=== PATIENT | male | born 1970 | race Caucasian/White ===

== ENCOUNTER 2019-06-15 14:45 | Inpatient (IN) ==
[2019-06-15] MEDS ORDERED: ONDANSETRON INJ 2 MG/ML 2 ML VIAL IV STA (15:01)
[2019-06-15] MEDS ORDERED: KETOROLAC TROMETHAMINE 15 MG/ML VIAL IV STA (15:01)
[2019-06-15] MEDS ORDERED: SODIUM CHLORIDE 0.9% 1000ML 1,000 ML IV ONE (15:01)
[2019-06-15] MEDS: MoRPHine SULFATE 10 MG/ML CARP/VIAL IV PRN ×2 (15:16→15:33)
[2019-06-15 15:35] LABS: Hematocrit (blood only) 45.3 % (42-52); Mean Corpuscular Hemoglobin 31.6 pg (25-34); Mean Corpuscular Hgb Conc 35.3 g/dL (32-36); Mean Corpuscular Volume 89.3 fL (80-100); Mean Platelet Volume 9.8 fL (7.4-10.4); Platelet Count 200 K/uL (130-400); RDW Coefficient of Variation 13.5 % (11.5-14.5); RDW Standard Deviation 43.7 fL (36.4-46.3); Red Blood Count 5.07 M/uL (4.7-6.1); White Blood Count 18.62 K/uL (4.8-10.8)
--- NOTE | 2019-06-15 15:51 | XRay Report ---
XR KUB/Abdomen 1 view CLINICAL HISTORY: STONE, PAIN COMPARISON STUDY: Noncontrast CT scan dated 06/14/2019 FINDINGS: There is scattered stool within the colon. The renal shadows are largely obscured. No defin ite renal calculi are visualized. There are 2 pelvic basin calcifications. The superior calcification is somewhat irregular. This measures 3 mm and may correspond to the recently described distal right ureteral calculus. IMPRESSION: 1. No evidence of pathologic bowel dilatation 2. 3 mm right pelvic basin calcification, possibly corresponding to the recently described distal rig ht ureteral calculus Electronically signed by: Jovan Hameed M.D. 06/15/2019 3:49 PM
[2019-06-15 15:52] LABS: BUN Creatinine Ratio 12.7 (10-20); Calcium 8.9 mg/dl (8.5-10.1); Creatinine Clr Calc Pharmacy 62.4 ml/min; Est GFR (African American) 76.6; Est GFR (Non-African American) 66.1
[2019-06-15] MEDS ORDERED: TAMSULOSIN HCL 0.4 MG CAP PO ONE (16:00)
[2019-06-15] MEDS ORDERED: MoRPHine SULFATE 4 MG/ML 1 ML CARP\\VIAL IV STA (16:25)
[2019-06-15] MEDS ORDERED: cefTRIAXone SODIUM 1,000 MG in DEXTROSE 5% 50 ML IV SCH ×2 (16:40→17:30)
--- NOTE | 2019-06-15 16:40 | Emergency Department Note ---
Entered by Fannie Chung acting as a scribe for History of Present Illness General Chief complaint: Kidney Stone Stated complaint: KIDNEY STONE Time Seen by Provider: 06/15/19 14:57 Source: patient Mode of arrival: ambulatory Limitations: no limitations History of Present Illness Provider complaint: Kidney stone Onset (ago): hour(s) (this morning) Location: abdomen (flank) and right Severity: similar to prior episodes Pain Consistency: + other (worsening) Maximum Pain Intensity: 10 Current Pain Intensity: 10 Quality: + other (kidney stone) Relieved By: + none Associated symptoms: + diaphoresis, + nausea/vomiting and + other (Denies: hematuria) The patient is a 49 year old male with a history of a kidney stone, temporomandibular joint disorder, and a herniorrhaphy who presents to the Emergency Room with complaints of a worsening kidney stone starting this morning around 1000. The patient reports he began experiencing right flank pain yesterday and subsequently came to the ED. He states that he was diagnosed with a 5 mm right-sided kidney stone and discharged on hydrocodone. He notes that his pain worsened today and that it has been accompanied by vomiting and diaphoresis. He currently rates his pain a 10/10. He denies any hematuria. The patient recalls that he had a kidney stone 20 years ago that passed naturally b ut may have required lithotripsy. He states that his PCP is Dr. Dawson at [facility] in [place]. Home Medications Home Medications Medication Instructions Recorded Confirmed Type hydrocodone-acetaminophen [[place]] 1 tab PO Q6H PRN #10 tab 06/14/19 06/15/19 Rx Allergies Allergy/AdvReac Type Severity Reaction Status Date / Time latex Allergy Redness of Verified 06/15/19 16:30 Skin Past Med/Surg History Medical History Kidney stone (Acute) 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 Surgical History History of herniorrhaphy X 4; ABDOMINAL Family History Mother Family history of diabetes mellitus Cancer BREAST Myocardial infarction Stroke Father Family history of diabetes mellitus Uncle Cancer Brother Cancer Social History Preferred Language: Romanian Communication Ability: Effective Auto Repair Technician Required: No Beliefs That Will Affect Care: None Current Living Situation: Family Other Information That Helps Us Care for You: No Feels Safe at Home: Yes Safety Concerns: Feels Safe At This Time Smoking Status: Never smoker Second Hand Exposure: No ; Hx Alcohol Use: No Hx Substance Use: No Review of Systems See HPI for pertinent positives & negatives. and A total of 10 systems reviewed and were otherwise negative Physical Exam Vital Signs Vital Signs - 24 hr 06/15/19 14:52 06/15/19 15:57 Temperature 36.4 C L Temperature Source Oral Sepsis Recent Fever Within 48 Hours No Sepsis New/Unexplained Change in Mental Status No Sepsis Action Taken by Nursing No Action Required Pulse Rate 53 L Pulse Rate [Finger] 68 Respiratory Rate 20 20 Blood Pressure 191/90 H Blood Pressure [Right Arm] 135/89 Blood Pressure Mean 123 Blood Pressure Mean [Right Arm] 104 Pulse Oximetry 100 98 Oxygen Delivery Method Room Air Room Air GENERAL: Patient is in moderate distress from pain. HEENT: No acute trauma, normocephalic atraumatic, mucous membranes moist, no nasal congestion, no scleral icterus. NECK: No stridor, no adenopathy, no meningismus, trachea is midline. LUNGS: Clear to auscultation bilaterally, no wheeze, no rhonchi, breath sounds equal. HEART: Without murmurs gallops or rubs, regular rate and rhythm. ABDOMEN: Soft, nontender, bowel sounds positive, no hernias, no peritonitis. BACK: Right flank discomfort with percussion. EXTREMITIES: No cyanosis or edema, full range of motion of all the joints without pain or difficulty, no signs for acute trauma. NEUROLOGIC: Oriented x 3, no acute motor or sensory deficits, no focal weakness. SKIN: No rash, no jaundice, no diaphoresis. Course 1500: The patient was evaluated in room B11A, and a complete history and physical examination were performed. 1556: I checked on the patient and updated him on his results. He is agreeable to the treatment plan. 1610: I reviewed the patient's case with Nicole Colindres PA-C. She will come to see the patient and Dr. Worley - Hospitalist will evaluate the patient for further management. Consultations Consultation #1: I reviewed the patient's case with Daljit Colindres PA-[facility]. She will come to see the patient and Dr. Worley - Hospitalist will evaluate the patient for further management. Time: 16:10 Administered Medications Acetaminophen (Tylenol) 1,000 mg PO Q8 PARMINDER Stop: 07/15/19 18:29 Last Admin: 06/15/19 18:43 Dose: 1,000 mg Documented by: [id number] Hydralazine HCl (Hydralazine Hcl) 10 mg IV Q6H PRN PRN Reason: Hypertension Stop: 07/15/19 19:29 Last Admin: 06/15/19 19:26 Dose: 10 mg Documented by: [id number] Sodium Chloride (Nss 1000ml) 1,000 mls @ 150 mls/hr IV .Q6H40M PARMINDER Stop: 07/15/19 16:44 Last Infusion: 06/15/19 22:00 Dose: 150 mls/hr Documented by: [id number] Infusion: 06/15/19 19:19 Dose: 150 mls/hr Documented by: [id number] Infusion: 06/15/19 18:42 Dose: 0 mls/hr Documented by: [id number] Admin: 06/15/19 18:10 Dose: 150 mls/hr Documented by: [id number] Infusion: 06/15/19 18:10 Dose: 150 mls/hr Documented by: [id number] Admin: 06/15/19 17:34 Dose: 150 mls/hr Documented by: [id number] Ceftriaxone Sodium 1,000 mg/ (Dextrose) 60 mls @ 100 mls/hr IV DAILY@1700 PARMINDER; Protocol Stop: 06/20/19 17:29 Last Infusion: 06/15/19 19:19 Dose: 0 mls/hr Documented by: [id number] Admin: 06/15/19 18:42 Dose: 100 mls/hr Documented by: [id number] Ketorolac Tromethamine (Toradol) 30 mg IV Q6H PRN PRN Reason: Pain Stop: 06/17/19 17:53 Last Admin: 06/15/19 20:07 Dose: 30 mg Documented by: [id number] Discontinued Medications Hydromorphone HCl (Dilaudid) Confirm Administered Dose 1 mg .ROUTE .STK-MED ONE Stop: 06/15/19 21:16 Last Admin: 06/15/19 21:16 Dose: 1 mg Documented by: [id number] Sodium Chloride (Nss 1000ml) 1,000 mls @ 999 mls/hr IV .Q1H1M ONE Stop: 06/15/19 16:01 Last Infusion: 06/15/19 16:17 Dose: 0 mls/hr Documented by: [id number] Admin: 06/15/19 15:17 Dose: 999 mls/hr Documented by: [id number] Ceftriaxone Sodium 1,000 mg/ (Dextrose) 60 mls @ 100 mls/hr IV DAILY PARMINDER; Protocol Stop: 06/20/19 16:39 Last Admin: 06/15/19 19:23 Dose: Not Given Documented by: [id number] Ketorolac Tromethamine (Toradol) 15 mg IV ONE STA Stop: 06/15/19 15:02 Last Admin: 06/15/19 15:16 Dose: 15 mg Documented by: [id number] Ketorolac Tromethamine (Toradol) 15 mg IV NOW ONE Stop: 06/15/19 17:07 Last Admin: 06/15/19 17:30 Dose: 15 mg Documented by: [id number] Morphine Sulfate (Morphine Sulfate) 6 mg IV Q10M PRN PRN Reason: Pain Last Admin: 06/15/19 15:33 Dose: 6 mg Documented by: [id number] Admin: 06/15/19 15:16 Dose: 6 mg Documented by: [id number] Morphine Sulfate (Morphine Sulfate) 4 mg IV NOW STA Stop: 06/15/19 16:26 Last Admin: 06/15/19 16:30 Dose: 4 mg Documented by: [id number] Morphine Sulfate (Morphine Sulfate) 4 mg IV Q4H PRN PRN Reason: Severe Pain Stop: 06/29/19 17:53 Last Admin: 06/15/19 18:42 Dose: 4 mg Documented by: [id number] Ondansetron HCl (Zofran) 4 mg IV NOW STA Stop: 06/15/19 15:02 Last Admin: 06/15/19 15:16 Dose: 4 mg Documented by: [id number] Tamsulosin HCl (Flomax) 0.4 mg PO NOW ONE Stop: 06/15/19 16:01 Last Admin: 06/15/19 16:14 Dose: 0.4 mg Documented by: [id number] Medical Decision Making Differential Diagnosis Differential diagnosis includes: failed outpatient treatment, dehydration, UTI, renal failure, hydronephrosis, renal colic, electrolyte imbalance. Medical Records Attestation: I reviewed the patient's medical records. Home Medications Current Medication List: was personally reviewed by me Laboratory Data Attestation: I reviewed the patient's lab results. Result diagrams: 06/15/19 15:14 06/15/19 15:14 Lab Results 06/15/19 06/15/19 Range/Units 15:14 15:14 WBC 18.62 H (4.8-10.8) K/uL RBC 5.07 (4.7-6.1) M/uL Hgb 16.0 (14.0-18.0) g/dL Hct 45.3 (42-52) % MCV 89.3 (80-100) fL MCH 31.6 (25-34) pg MCHC 35.3 (32-36) g/dL RDW Std Deviation 43.7 (36.4-46.3) fL RDW Coeff of Gayle 13.5 (11.5-14.5) % Plt Count 200 (130-400) K/uL MPV 9.8 (7.4-10.4) fL Sodium 139 (136-145) mmol/L Potassium 4.0 (3.5-5.1) mmol/L Chloride 102 (98-107) mmol/L Carbon Dioxide 27 (21-32) mmol/L Anion Gap 10.0 (3-11) BUN 16 (7-18) mg/dl Creatinine 1.26 (0.6-1.4) mg/dl Est Cr Clr Drug Dosing 62.4 ml/min Est GFR ( Amer) 76.6 Est GFR (Non-Af Amer) 66.1 BUN/Creatinine Ratio 12.7 (10-20) Glucose 126 H (70-99) mg/dl Calcium 8.9 (8.5-10.1) mg/dl Imaging Data Radiologist's Impression: Radiology results as stated below per my review and the radiologist's interpretation: XR KUB/Abdomen 1 view CLINICAL HISTORY: STONE, PAIN COMPARISON STUDY: Noncontrast CT scan dated 06/14/2019 FINDINGS: There is scattered stool within the colon. The renal shadows are largely obscured. No definite renal calculi are visualized. There are 2 pelvic basin calcifications. The superior calcification is somewhat irregular. This measures 3 mm and may correspond to the recently described distal right ureteral calculus. IMPRESSION: 1. No evidence of pathologic bowel dilatation 2. 3 mm right pelvic basin calcification, possibly corresponding to the recently described distal right ureteral calculus Electronically signed by: Jovan Hameed M.D. 06/15/2019 3:49 PM Blood Pressure Blood Pressure Findings: Elevated blood pressure Blood Pressure Disposition: further management by hospitalist OTONIEL Narrative There is a leukocytosis with a white count of 18,000, this could be consistent with infection or just his pain and vomiting. No anemia. No significant electrolyte abnormality or kidney failure. Urinalysis result is pending today but yesterday's UA did not suggest infection. KUB shows a distal right pelvic calcification, likely consistent with a distal ureteral stone. On exam, the patient was quite uncomfortable. He was not febrile, he was not toxic. The patient received IV saline, IV Zofran, IV Toradol and IV morphine. A second dose of IV morphine was given. He was given oral Flomax to help with stone passage. The patient has failed outpatient treatment for his ureteral stone. He is patel ving uncontrolled pain despite the [place], he is vomiting. I do think a hospital stay is warranted. I spoke to the patient and case management. The on-call hospitalist was consulted. Urologic intervention may be required during this hospitalization. Impression & Plan Renal colic, Vomiting, Leukocytosis, Failure of outpatient treatment Discharge Plan Visit Data *Final* Discharge Date/Time: 06/15/19 17:40 Chief Complaint: Kidney Stone Stated Complaint: KIDNEY STONE ED Provider: Carlton Marin Discharge Problem: Renal colic, Vomiting, Leukocytosis, Failure of outpatient treatment Patient Disposition: Admitted As Inpatient Discharge Instructions Interventions: ED Discharge Assessment Last Done: 06/15/19 17:40 Discharge Problem: Vomiting Qualifiers: Vomiting type: unspecified Vomiting Intractability: non-intractable Nausea presence: unspecified Qualified Code(s): R11.10 - Vomiting, unspecified Leukocytosis Qualifiers: Leukocytosis type: unspecified Qualified Code(s): D72.829 - Elevated white blood cell count, unspecified The scribe's documentation has been prepared under my direction and personally reviewed by me in its entirety. I confirm that the note above accurately reflects all work, treatment, procedures, and medical decision making performed by me.
--- NOTE | 2019-06-15 16:56 | History & Physical Report ---
Date of Service June 15, 2019 Assessment & Plan (1) Calculus of distal right ureter: (2) Renal colic: (3) Leukocytosis: Seen in ED CT Scan done 06/14 revealed 5mm obstructing calculus distal right ureter located proximal to UVJ D/C to home on 06/14 with norco Presented back to ER today with worsened pain KUB reveals 3 mm right pelvic basin calcification, likely corresponding to distal calculus seen day prior In ED given IV morphine, toradol, IVF and flomax Admit pt to med/surg Urology consulted: discussed case with Dr. Wilson IVF 150cc/hr Urinalysis ordered Start empiric Rocephin 1g q24hr due to elevated WBC 14k --> 18k. May be in setting of pain but will treat empirically given mild hydronephrosis demonstrated yesterday flomax given in ED Morphine 4mg q4hr PRN severe pain; Toradol 30mg IV q6hr prn pain scheduled APAP 1g q8hr (4) Elevated glucose: pt glucose 126 today with minimal oral intake FH of DM, will screen with A1C in a.m. (5) DVT prophylaxis: SCD/TEDS Disposition: D/C to home in a.m. Follow up: PCP Dr. Mason upon discharge Patient was seen and examined in collaboration with Dr. Worley, please see addendum History of Present Illness Chief Complaint: R flank pain x 2 days. Primary Care Provider: Denise Dawson, This is a 49 yr old male with no significant PMH who presents to [facility] ED secondary to R flank pain x 2 days. Of significance pt was seen in ED yesterday due to similar sx. He was dx with a 5mm obstructing nephrolithiasis proximal to the R UVJ with mild hydronephrosis. He was discharged home with conservative management and oral analgesia in hopes to pass stone. Pt was taking norco and tylenol with out relief. Presented back to ED due to increase in pain starting at 10am. Pain located R Flank, described as sharp and stabbing, does not radiate to groin, not improved with OTC analgesia or norco. Currently rated 10/10. Also complains of nausea and emesis. Pt has had kidney stone in past ~ 20 years ago but denies ever having procedure. Sx feel similar but much more intense. Bharath nues to have pain despite IV morphine and toradol given in ED. Denies f/c/s, dizziness, lightheaded, chest pain, sob, abdominal pain, diarrhea, dysuria, hematuria, increased urgency/freq with urination. Appetite overall diminished, last ate breakfast bowl of cereal. Allergies Allergy/AdvReac Type Severity Reaction Status Date / Time latex Allergy Redness of Verified 06/15/19 16:30 Skin Home Medications Home Medications Medication Instructions Recorded Confirmed Type hydrocodone-acetaminophen [[place]] 1 tab PO Q6H PRN #10 tab 06/14/19 06/15/19 Rx Past Med/Surg History Medical History Kidney stone (Acute) 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 Surgical History History of herniorrhaphy X 4; ABDOMINAL Family History Mother Family history of diabetes mellitus Cancer BREAST Myocardial infarction Stroke Father Family history of diabetes mellitus Uncle Cancer Brother Cancer Social History Preferred Language: Azerbaijani Communication Ability: Effective Postulant Required: No Beliefs That Will Affect Care: None Current Living Situation: Family Other Information That Helps Us Care for You: No Feels Safe at Home: Yes Safety Concerns: Feels Safe At This Time Smoking Status: Never smoker Second Hand Exposure: No ; Hx Alcohol Use: No Hx Substance Use: No Review of Systems Review of Systems: All systems reviewed & are unremarkable except as noted in HPI & below Physical Exam Physical Exam: Constitutional: Thin but WD, M, +distress, pt appears uncomfortable due to pain, vitals as above, sitting up in bed, Pt not cooperative with entire exam due to pain Head: Normocephalic, Atraumatic Eyes: PERRL, conjunctivae normal, anicteric sclerae ENMT: external ear and nose normal, oropharynx normal Neck: trachea midline, normal visual inspection Respiratory: normal respiratory effort, lungs clear to auscultation, no wheeze, rales, rhonchi anteriorly. Pt would not comply to listen posteriorly, but w/o respiratory complaint. Normal insp/exp effort, no accessory muscle use Cardiovascular: RRR, no murmur, no edema Vessels: no JVD or carotid bruit Chest: normal inspection of chest Abdomen: normal bowel sounds, soft, nontender, no hepatosplenomegaly Musculoskeletal: no cyanosis or clubbing, extremities motor strength 5/5 Skin: no rashes, warm and dry normal turgor Neurologic: PERRL, EOMI, accommodation nl, no face palsy, no dysarthria CN's II-XI intact bilaterally and moves all extremities Psychiatric: A+Ox3, euthymic affect : deferred Results & Data Vital Signs (Past 12 Hours) Vital Signs Temp Pulse Pulse Resp BP BP Pulse Ox 06/15/19 15:57 68 20 135/89 98 06/15/19 14:52 36.4 C L 53 L 20 191/90 H 100 Laboratory Results Short CBC 06/15/19 Range/Units 15:14 WBC 18.62 H (4.8-10.8) K/uL Hgb 16.0 (14.0-18.0) g/dL Hct 45.3 (42-52) % Plt Count 200 (130-400) K/uL [facility] 06/15/19 15:14 Sodium 139 Potassium 4.0 Chloride 102 Carbon Dioxide 27 BUN 16 Creatinine 1.26 Glucose 126 H Calcium 8.9 Diagnostic Findings abd/pelvis CT 06/14/19: IMPRESSION: 1. There is a 5 mm obstructing calculus in the distal right ureter located just above the vesicoureteral junction. This causes mild right hydroureteronephrosis. 2. No additional calculi are identified in either kidney. KUB Xray: IMPRESSION: 1. No evidence of pathologic bowel dilatation 2. 3 mm right pelvic basin calcification, possibly corresponding to the recently described distal right ureteral calculus Medications Administered Short CBC 06/15/19 Range/Units 15:14 WBC 18.62 H (4.8-10.8) K/uL Hgb 16.0 (14.0-18.0) g/dL Hct 45.3 (42-52) % Plt Count 200 (130-400) K/uL [facility] 06/15/19 15:14 Sodium 139 Potassium 4.0 Chloride 102 Carbon Dioxide 27 BUN 16 Creatinine 1.26 Glucose 126 H Calcium 8.9 Code Status & VTE Plan Code Status Full Code VTE Prophylaxis Plan VTE Prophylaxis will be ordered: Yes Supervising Physician Co-Signing Physician Notes Attending addendum The patient was seen and examined in the medical floor He has been complaining of right flank pain with radiation to groin Has a chills but no documented fever No hematuria Denies the pain On examination Anxious and noted to have very high blood pressure likely due to anxiety Chest-clear Heart-S1-S2, regular Abdomen-tender right flank and right lower quadrant and inguinal area, tender right CVA Extremities-negative Admission labs and imaging studies reviewed Has right-sided kidney stone May have infection Urology consulted Agree with assessment and plan as outlined above by SHAWN Singh Dr (1) Leukocytosis Leukocytosis type: unspecified Qualified Code(s): D72.829 - Elevated white blood cell count, unspecified
[2019-06-15] MEDS ORDERED: KETOROLAC TROMETHAMINE 15 MG/ML VIAL IV ONE (17:06)
[2019-06-15] MEDS: SODIUM CHLORIDE 0.9% 1000ML 1,000 ML IV SCH ×2 (17:34→18:10)
[2019-06-15] MEDS ORDERED: MAGNESIUM HYDROXIDE SUSP 30 ML UDC PO PRN (17:54)
[2019-06-15] MEDS ORDERED: ONDANSETRON INJ 2 MG/ML 2 ML VIAL IV PRN (17:54)
[2019-06-15] MEDS ORDERED: MoRPHine SULFATE 4 MG/ML 1 ML CARP\\VIAL IV PRN (17:54)
[2019-06-15] MEDS ORDERED: ACETAMINOPHEN 325 MG TAB PO PRN (17:54)
[2019-06-15] MEDS ORDERED: POLYETHYLENE (MIRALAX) 17 GM PACK PO PRN (17:54)
[2019-06-15 18:28] LABS: Appearance Urine Clear (Clear); Bilirubin Urine Negative (Negative); Blood Urine Negative (Negative); Color Urine Yellow; Glucose Urine UA 1+ (Negative); Ketones Urine 1+ (Negative); Leukocyte Esterase Urine Negative (Negative); Nitrite Urine Negative (Negative); Protein Urine Negative (Negative); Specific Gravity Urine 1.017 (1.000-1.030); Urobilinogen Urine Negative (Negative); pH Urine 7.5 (4.5-7.5)
[2019-06-15] MEDS: ACETAMINOPHEN 500 MG TAB PO SCH (18:43)
[2019-06-15] MEDS ORDERED: HydrALAZINE HCL 20 MG/ML VIAL IV PRN (19:17)
[2019-06-15] MEDS: KETOROLAC 30 MG/ML VIAL IV PRN (20:07)
[2019-06-15] MEDS ORDERED: HYDROmorphone INJ 1 MG/ML SYRINGE ONE (21:15)
[2019-06-16] MEDS: ALUMINUM/MAGNESIUM SUSP 30 ML UDC PO PRN (00:03)
[2019-06-16] MEDS: HYDROmorphone INJ 1 MG/ML SYRINGE IV PRN ×3 (00:11→21:05)
[2019-06-16] MEDS: SODIUM CHLORIDE 0.9% 1000ML 1,000 ML IV SCH ×3 (01:24→18:15)
[2019-06-16] MEDS: KETOROLAC 30 MG/ML VIAL IV PRN ×3 (02:23→18:14)
[2019-06-16] MEDS: ACETAMINOPHEN 500 MG TAB PO SCH ×3 (05:12→21:02)
[2019-06-16 07:18] LABS: Basophils # (auto) 0.01 K/uL (0-0.2); Basophils % (auto) 0.1 %; Eosinophils # (auto) 0.04 K/uL (0-0.5); Eosinophils % (auto) 0.3 %; Hematocrit (blood only) 37.9 % (42-52); Hemoglobin 12.9 g/dL (14.0-18.0); Immature Granulocytes # (auto) 0.01 K/uL (0.00-0.02); Immature Granulocytes % (auto) 0.1 %; Lymphocytes # (auto) 2.06 K/uL (1.2-3.4); Lymphocytes % (auto) 17.4 %; Mean Corpuscular Hemoglobin 30.6 pg (25-34); Mean Corpuscular Volume 89.8 fL (80-100); Monocytes # (auto) 1.32 K/uL (0.11-0.59); Monocytes % (auto) 11.1 %; Neutrophils # (auto) 8.41 K/uL (1.4-6.5); Platelet Count 154 K/uL (130-400); RDW Coefficient of Variation 13.3 % (11.5-14.5); RDW Standard Deviation 43.6 fL (36.4-46.3); Red Blood Count 4.22 M/uL (4.7-6.1); White Blood Count 11.85 K/uL (4.8-10.8)
[2019-06-16 07:40] LABS: BUN Creatinine Ratio 13.4 (10-20); Creatinine Clr Calc Pharmacy 71.7 ml/min; Est GFR (African American) 78.8; Potassium 3.9 mmol/L (3.5-5.1)
--- NOTE | 2019-06-16 07:54 | Urology Consultation ---
Date of Consultation June 16, 2019 Assessment & Plan (1) Calculus of distal right ureter: 49yo M with 5mm Right UVJ stone, moderate hydronephrosis. Pt is nontoxic, pain controlled with IV pain control. Visible on KUB. We discussed options for treatment, MET vs ESWL vs URS today. Pt is motivated to treat today due to his level of discomfort and upcoming two week trip to [place], leaving on Saturday. Returning the week of Jul 06. Findings reviewed with Dr. Avalos. Given his persistent renal colic in the context of an obstructing right distal ureteral stone, will proceed with OR for cysto, right retrograde pyelogram, right ureteroscopy, laser lithotripsy, stone basketing, possible ureteral dilation, and and right ureteral stent placement. Risks and benefits to be reviewed with patient by Dr. Avalos. OR notified. Preoperative CXR and EKG ordered. Will cover with IV Rocephin preoperatively, empirically initiated by hospital team last evening for elevated WBCs. Discussed time of dosing with pharmacist, last dose at 1900 last evening. Okay to admin after 1pm. Please contact our service urgently if patient develops fever >101F, intractable pain or vomiting. Keep NPO, strain all urine. Continue IVFs. History of Present Illness Reason for Consultation: stone Requesting Physician: Dr. Worley Attending Physician: Wil Worley MD History of Present Illness 49yo M admitted through [facility] ED last evening with complaint of severe right flan k pain, nausea, vomiting. CT imaging reveals 5mm distal right UVJ stone, with mild hydronephrosis. Pain is currently controlled but requiring IV pain control to do so. VSS, afebrile. Does acknowledge some hesitancy, urgency. Denies hematuria, dysuria. Hiccups are very irritating to him. NPO awaiting our recommendations. Pt has remote hx of stones, ~20 years ago with spontaneous passage. Never required surgical intervention. Otherwise healthy. He is concerned about his upcoming trip to [place], leaving on Saturday for two weeks. 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 Surgical History History of herniorrhaphy X 4; ABDOMINAL Family History Mother Family history of diabetes mellitus Cancer BREAST Myocardial infarction Stroke Father Family history of diabetes mellitus Uncle Cancer Brother Cancer Social History Preferred Language: Faroese Communication Ability: Effective 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 Beliefs That Will Affect Care: None Current Living Situation: Family Other Information That Helps Us Care for You: No Feels Safe at Home: Yes Safety Concerns: Feels Safe At This Time Smoking Status: Never smoker Second Hand Exposure: No ; Hx Alcohol Use: No Hx Substance Use: No Review of Systems Review of Systems: Constitutional: Denies fever, chills, sweats, malaise Eyes: Denies problem reported ENMT: Denies dizziness Resp: Denies cough, Denies shortness of breath CV: Denies JVD GI: Denies nausea/vomiting : Denies suprapubic or flank pain, dysuria, urgency, frequency, hematuria MS: Denies swelling, stiffness Integ: Denies rash, erythema Neuro: Denies falls, weakness Psych: Denies behavior change Endo: Denies polyphagia, polydipsia Heme: Denies easy bleeding Genitourinary: + as per Subjective / HPI Physical Exam Constitutional: no acute distress and not ill appearing Eyes: no nystagmus ENMT: Ears: no hearing impairment Neck: trachea midline Respiratory: no respiratory distress and no cough Cardiovascular: Vessels: no JVD Chest (Breasts): Chest: normal inspection of chest Gastrointestinal (Abdomen): Inspection/Auscultation: abdomen not distended and no abdominal edema Percussion/Palpation: abdomen soft; abdomen nontender Musculoskeletal: Head/Neck/Chest: normocephalic and head atraumatic Skin: no rashes, warm and dry Neurologic: awake; not confused and not obtunded Psychiatric: Orientation: alert and oriented x 3 Eye Contact: good eye contact Affect: no depressed affect Genitourinary: + CVA tenderness (right) and bladder normal to inspection Lymphatic: no lymphadenopathy and no lymphedema Results & Data Vital Signs (Past 12 Hours) Vital Signs Temp Pulse Resp BP Pulse Ox 06/16/19 07:33 36.8 C 76 18 135/72 95 06/15/19 23:46 36.6 C 75 17 132/77 94 06/15/19 19:47 166/94 H Laboratory Results Laboratory Results - last 48 hr 06/15/19 06/15/19 06/15/19 15:14 15:14 17:45 WBC 18.62 H RBC 5.07 Hgb 16.0 Hct 45.3 MCV 89.3 MCH 31.6 MCHC 35.3 RDW Std Deviation 43.7 RDW Coeff of Gayle 13.5 Plt Count 200 MPV 9.8 Immature Gran % (Auto) Neut % (Auto) Lymph % (Auto) [place] % (Auto) Eos % (Auto) Baso % (Auto) Immature Gran # (Auto) Neut # (Auto) Lymph # (Auto) [place] # (Auto) Eos # (Auto) Baso # (Auto) Sodium 139 Potassium 4.0 Chloride 102 Carbon Dioxide 27 Anion Gap 10.0 BUN 16 Creatinine 1.26 Est Cr Clr Drug Dosing 62.4 Est GFR ( Amer) 76.6 Est GFR (Non-Af Amer) 66.1 BUN/Creatinine Ratio 12.7 Glucose 126 H Calcium 8.9 Urine Color Yellow Urine Appearance Clear Urine pH 7.5 Ur Specific [place] 1.017 Urine Protein Negative Urine Glucose (UA) 1+ H Urine Ketones 1+ H Urine Blood Negative Urine Nitrite Negative Urine Bilirubin Negative Urine Urobilinogen Negative Ur Leukocyte Esterase Negative 06/16/19 06/16/19 06:34 06:34 WBC 11.85 H RBC 4.22 L Hgb 12.9 L D Hct 37.9 L MCV 89.8 MCH 30.6 MCHC 34.0 RDW Std Deviation 43.6 RDW Coeff of Gayle 13.3 Plt Count 154 MPV 10.0 Immature Gran % (Auto) 0.1 Neut % (Auto) 71.0 Lymph % (Auto) 17.4 [place] % (Auto) 11.1 Eos % (Auto) 0.3 Baso % (Auto) 0.1 Immature Gran # (Auto) 0.01 Neut # (Auto) 8.41 H Lymph # (Auto) 2.06 [place] # (Auto) 1.32 H Eos # (Auto) 0.04 Baso # (Auto) 0.01 Sodium 140 Potassium 3.9 Chloride 106 Carbon Dioxide 30 Anion Gap 4.0 BUN 17 Creatinine 1.23 Est Cr Clr Drug Dosing 71.7 Est GFR ( Amer) 78.8 Est GFR (Non-Af Amer) 68.0 BUN/Creatinine Ratio 13.4 Glucose 92 Calcium 8.0 L Urine Color Urine Appearance Urine pH Ur Specific [place] Urine Protein Urine Glucose (UA) Urine Ketones Urine Blood Urine Nitrite Urine Bilirubin Urine Urobilinogen Ur Leukocyte Esterase
[2019-06-16 08:30] LABS: Estimated Average Glucose 91 mg/dl; Hemoglobin A1C 4.8 % (4.5-5.6)
--- NOTE | 2019-06-16 09:02 | XRay Report ---
XR chest 2V routine CLINICAL HISTORY: 49 years-old Male presenting with preop. TECHNIQUE: PA and lateral views of the chest were obtained. COMPARISON: None. FINDINGS: Cardiomediastinal silhouette normal. Lungs and pleural spaces clear. Osseous structures normal. Upper abdomen normal. IMPRESSION: 1. No acute cardiopulmonary disease. Electronically signed by: Weston Carrillo M.D. 06/16/2019 9:00 AM
[2019-06-16] MEDS ORDERED: cefTRIAXone SODIUM 1,000 MG/50 ML BAG IV ONE (13:00)
[2019-06-16] MEDS ORDERED: PROPOFOL IV EMULSION 10 MG/ML 20 ML VIAL IV ONE (13:31)
[2019-06-16] MEDS ORDERED: fentaNYL citrate 100 MCG/2 ML VIAL ONE (13:31)
[2019-06-16] MEDS ORDERED: LIDOCAINE HCL 2% 2 ML VIAL/AMP(20MG/ML) INFIL ONE (13:31)
[2019-06-16] MEDS ORDERED: MIDAZOLAM HCL 1 MG/ML 2ML VIAL ONE (13:31)
--- NOTE | 2019-06-16 13:52 | History & Physical Bridge Note ---
Date of Service June 16, 2019 History & Physical Bridge Note I have examined the patient, reviewed the History & Physical and in the interval since the performance of the History & Physical I have noted the following changes of clinical significance: no changes noted
[2019-06-16] MEDS ORDERED: CIPROFLOXACIN 400MG / 200ML D5W IV ONE (14:07)
[2019-06-16] MEDS ORDERED: IOTHALAMATE MEGLUMINE II 17.2% 250 ML VIAL ONE (14:08)
[2019-06-16] MEDS ORDERED: CIPROFLOXACIN 400 MG/200 ML BAG IV STA (14:12)
[2019-06-16] MEDS ORDERED: KETOROLAC 30 MG/ML VIAL ONE (14:59)
--- NOTE | 2019-06-16 15:09 | Operative Report ---
Post Operative Report Pre & Post Diagnosis Operation Date: 06/16/19 13:00 Pre-Op Diagnosis: Right distal ureteral calculus Post-Op Diagnosis: Right distal ureteral calculus Procedure Operation Date: 06/16/19 13:00 Actual Procedures p Cystoscopy, Right Ureteroscopy, Laser Lithotripsy, Right Ureteral Stent Placement(Left) - Nilton Avalos MD Surgeon Tucker Avalos MD Loan Approver none Estimated Blood Loss 0 Findings Consistent with Post-Op Diagnosis Specimens none Description of Procedure The patient was identified in the preopertive holding area, appropriate informed consents were reviewed and completed and the patient was transferred to the operative suite. Upon arrival, appropriate antibiotics and anesthesia were administered and the patient was placed in dorsal lithotomy position and prepped and draped in sterile fashion. To begin the case I passed a 22 [place] cystoscope with 30 degree lens. Inspection of the urethra and bladder were unremarkable. He has a small prostate without substantial obstruction. I turned my attention of the right UO and cannulated with a 5 [place] open-ended catheter and sensor wire. Wire advanced the kidney without difficulty. I then reentered the bladder with a semirigid ureteroscope alongside the wire. I was able to guide this into the distal right ureter and gently coax it through the distal several centimeters of ureter. I then encountered a round appearing yellow/black calculus just above a narrow band. The 270 m laser fiber and fragmented into tiny pieces that were deemed safe for spontaneous passage. Confirming no large retained fragments, I carefully performed an exit ureteroscopy subsequently placed a 6 [place] by 26 cm double-J ureteral stent leaving a string attached to the distal end. The string was taped to the dorsal aspect of his penis and the case concluded. He was extubated and taken to the PACU in stable condition. I attest to the content of the Intraoperative Record and any orders documented therein. Any exceptions are noted below.
--- NOTE | 2019-06-16 15:10 | Fluoroscopy Report ---
FL KUB CLINICAL HISTORY: STENT PLACEMENT/STONE COMPARISON STUDY: CT 06/14/2019 FLUOROSCOPY TIME: 6 seconds NUMBER OF FLUOROSCOPIC IMAGES: 1 FINDINGS: Image intensifier was utilized for a right ureteral stent placement IMPRESSION: Image intensifier utilization for right ureteral stent placement The above report was generated using voice recognition software. It may contain grammatical, syntax or spelling errors. Electronically signed by: Cedric Zaman M.D. 06/16/2019 3:09 PM
--- NOTE | 2019-06-16 15:52 | Anesthesiology Consultation ---
Date of Service June 16, 2019 Assessment & Plan (1) Encounter for pre-operative examination: Chart Review Chart Review: Acceptable Risk for Surgery and Patient NOT seen in Pre Admission Testing Consults Requested none History Surgery Operation Date: 06/16/19 13:00 Proposed Procedures p Cystoscopy, Right Retrograde, Ureteroscopy, Laser Lithotripsy, Basket Stone Extraction, Possibile Dilation, Right Stent Placement - Nilton Avalos MD Height/Weight Height: 5 ft 10 in Weight: 70.562 kg Allergies Allergy/AdvReac Type Severity Reaction Status Date / Time latex Allergy Redness of Verified 06/15/19 16:30 Skin Medications Home Medications Medication Instructions Recorded Confirmed Last Taken hydrocodone-acetaminophen [[place]] 1 tab PO Q6H PRN #10 tab 06/14/19 06/15/19 Unknown Active Medications Generic Name Dose Route Start Last Admin Trade Name Freq PRN Reason Stop Dose Admin Acetaminophen 1,000 mg 06/15/19 18:30 06/16/19 13:44 Tylenol PO 07/15/19 18:29 Not Given Q8 PARMINDER Al Hydrox/Mg Hydrox/Simethicone 30 ml 06/15/19 17:54 06/16/19 00:03 Maalox PO 07/15/19 17:53 30 ml Q6H PRN Administration Dyspepsia Hydralazine HCl 10 mg 06/15/19 19:17 06/15/19 19:26 Hydralazine Hcl IV 07/15/19 19:29 10 mg Q6H PRN Administration Hypertension Hydromorphone HCl 1 mg 06/15/19 21:07 06/16/19 05:12 Dilaudid IV 06/29/19 21:06 1 mg Q3H PRN Administration Pain Sodium Chloride 1,000 mls @ 150 mls/hr 06/15/19 16:45 06/16/19 08:10 Nss 1000ml IV 07/15/19 16:44 150 mls/hr .Q6H40M PARMINDER Administration Ceftriaxone Sodium 1,000 mg/ 60 mls @ 100 mls/hr 06/15/19 17:30 06/15/19 19:19 Dextrose IV 06/20/19 17:29 Infused DAILY@1700 PARMINDER Infusion Protocol Ketorolac Tromethamine 30 mg 06/15/19 17:54 06/16/19 08:34 Toradol IV 06/17/19 17:53 30 mg Q6H PRN Administration Pain NPO Date Last Intake of Fluids: 06/15/19 Time Last Intake of Fluids: 23:59 Date Last Intake of Solids: 06/15/19 Time Last Intake of Solids: 09:00 Past Medical History Medical History Kidney stone (Acute) 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 Past Family History Family History Mother Family history of diabetes mellitus Cancer BREAST Myocardial infarction Stroke Father Family history of diabetes mellitus Uncle Cancer Brother Cancer Past Surgical History Surgical History History of herniorrhaphy X 4; ABDOMINAL Social History Smoking Status: Never smoker Hx Alcohol Use: No Hx Substance Use: No substance use type: does not use Physical Exam Vital Signs Last Vital Signs Temp 36.4 C L 06/16/19 15:11 Pulse 78 06/16/19 15:40 Resp 16 06/16/19 15:40 BP 121/63 06/16/19 15:40 Pulse Ox 98 06/16/19 15:40 Testing Laboratory Results 06/16/19 06:34 06/16/19 06:34 Hemoglobin A1c 4.8 % (4.5-5.6) 06/16/19 06:34 Urine Color Yellow 06/15/19 17:45 Urine Appearance Clear (Clear) 06/15/19 17:45 Urine pH 7.5 (4.5-7.5) 06/15/19 17:45 Ur Specific [place] 1.017 (1.000-1.030) 06/15/19 17:45 Urine Protein Negative (Negative) 06/15/19 17:45 Urine Glucose (UA) 1+ (Negative) H 06/15/19 17:45 Urine Ketones 1+ (Negative) H 06/15/19 17:45 Urine Nitrite Negative (Negative) 06/15/19 17:45 Ur Leukocyte Esterase Negative (Negative) 06/15/19 17:45
[2019-06-16] MEDS ORDERED: ATROPINE SULFATE 0.1 MG/ML 10ML SYR IV PRN (15:55)
[2019-06-16] MEDS ORDERED: ePHEDrine sulfate 50 MG/ML AMP IV PRN (15:55)
--- NOTE | 2019-06-16 15:55 | Anesthesiology Progress Note ---
Date of Service June 16, 2019 Anesthesia Post Procedure Vital Signs Vital Signs: Temp Pulse Pulse Pulse Resp BP BP 06/16/19 15:50 36.5 C 06/16/19 15:40 78 16 121/63 06/16/19 15:30 78 16 118/75 06/16/19 15:20 90 16 106/48 L 06/16/19 15:11 36.4 C L 74 16 101/52 L 06/16/19 13:12 36.8 C 78 20 148/84 H 06/16/19 07:33 36.8 C 76 18 135/72 06/15/19 23:46 36.6 C 75 17 132/77 06/15/19 19:47 166/94 H 06/15/19 17:56 36.8 C 57 L 16 119/110 H 06/15/19 17:55 36.8 C 57 L 16 119/110 H 06/15/19 17:40 62 20 191/123 H 06/15/19 15:57 68 20 BP Pulse Ox 06/16/19 15:50 06/16/19 15:40 98 06/16/19 15:30 96 06/16/19 15:20 99 06/16/19 15:11 98 06/16/19 13:12 98 06/16/19 07:33 95 06/15/19 23:46 94 06/15/19 19:47 06/15/19 17:56 200/106 H 99 06/15/19 17:55 99 06/15/19 17:40 98 06/15/19 15:57 135/89 98 Pain Intensity Right Flank: Pain Intensity: 8 Transfer of Care Handoff Completed per policy Notes Mental Status: alert / awake / arousable Patient Amnestic to Procedure: Yes Nausea / Vomiting: adequately controlled Pain: adequately controlled Airway Patency, RR, SpO2: stable & adequate BP & HR: stable & adequate Hydration State: stable & adequate Anesthetic Complications: no major complications apparent and Pt Satisfied with anesthetic care
--- NOTE | 2019-06-16 18:38 | Hospitalist Progress Note ---
Date of Service June 16, 2019 Assessment & Plan (1) Calculus of distal right ureter: Appreciate urology input and recommendation Status post Cystoscopy, Right Ureteroscopy, Laser Lithotripsy, Right Ureteral Stent Placement(Left) - Nilton Avalos MD on 06/16 Feeling better following the procedure (2) Renal colic: Due to electrical stone (3) Leukocytosis: Likely secondary to UTI secondary obstructed right ureteral stone Start empiric Rocephin 1g q24hr due to elevated WBC 14k --> 18k. May be in setting of pain but will treat empirically given mild hydronephrosis demonstrated yesterday Flomax given in ED Morphine 4mg q4hr PRN severe pain; Toradol 30mg IV q6hr prn pain scheduled APAP 1g q8hr Appreciate hematology input and recommendation Has been getting oral Cipro to be continued for about 7days on discharge (4) Elevated glucose: pt glucose 126 today with minimal oral intake FH of DM, will screen with A1C in a.m. (5) DVT prophylaxis: SCD/TEDS Disposition: Likely discharge tomorrow Subjective 06/16 The patient was seen and examined in medical floor He was admitted yesterday with right ureteric stone with typical symptoms His pain is reasonably controlled with intravenous pain medications Complains to have some headache likely secondary to caffeine withdrawal Review of Systems Review of Systems: All systems reviewed and are unremarkable except as noted below Gastrointestinal: + abdominal pain (Right flank and radiate to right groin area) and + nausea; no vomiting Physical Exam Physical Exam: Lying in bed with some discomfort Constitutional: no acute distress and not ill appearing Eyes: PERRL, conjunctivae normal, anicteric sclerae no nystagmus ENMT: external ear and nose normal, oropharynx normal Mouth: no TMJ abnormality Mallampati Class: II Neck: trachea midline, no thyromegaly normal visual inspection and trachea midline Respiratory: normal respiratory effort; no respiratory distress and no cough Auscultation: lungs clear to auscultation bilaterally Cardiovascular: Rate/Rhythm: regular rate and regular rhythm Heart Sounds: no murmur Vessels: no JVD Chest (Breasts): Chest: normal inspection of chest Gastrointestinal (Abdomen): Inspection/Auscultation: abdomen not distended and no abdominal edema Percussion/Palpation: abdomen soft; abdomen nontender Musculoskeletal: Head/Neck/Chest: normocephalic and head atraumatic Skin: no rashes, warm and dry Neurologic: moves all extremities and awake; not confused and not obtunded Psychiatric: Orientation: alert and oriented x 3 Eye Contact: good eye contact Affect: no depressed affect Genitourinary: + CVA tenderness (right) and bladder normal to inspection Lymphatic: no lymphadenopathy and no lymphedema Results & Data Vital Signs (Past 12 Hours) Vital Signs Temp Pulse Pulse Resp BP Pulse Ox 06/16/19 18:09 36.9 C 82 18 143/81 H 96 06/16/19 17:02 37.0 C 80 18 143/81 H 95 06/16/19 16:35 36.9 C 68 18 137/90 95 06/16/19 16:00 36.5 C 60 18 128/78 97 06/16/19 15:50 36.5 C 06/16/19 15:40 78 16 121/63 98 06/16/19 15:30 78 16 118/75 96 06/16/19 15:20 90 16 106/48 L 99 06/16/19 15:11 36.4 C L 74 16 101/52 L 98 06/16/19 13:12 36.8 C 78 20 148/84 H 98 06/16/19 07:33 36.8 C 76 18 135/72 95 Laboratory Results Short CBC 06/16/19 Range/Units 06:34 WBC 11.85 H (4.8-10.8) K/uL Hgb 12.9 L D (14.0-18.0) g/dL Hct 37.9 L (42-52) % Plt Count 154 (130-400) K/uL BMP 06/16/19 06:34 Sodium 140 Potassium 3.9 Chloride 106 Carbon Dioxide 30 BUN 17 Creatinine 1.23 Glucose 92 Calcium 8.0 L Medications Administered Current Inpatient Medications Acetaminophen (Tylenol) 1,000 mg PO Q8 PARMINDER Stop: 07/15/19 18:29 Last Admin: 06/16/19 13:44 Dose: Not Given Documented by: Acetaminophen (Tylenol) 650 mg PO Q4H PRN PRN Reason: pain/fever Stop: 07/15/19 17:53 Al Hydrox/Mg Hydrox/Simethicone (Maalox) 30 ml PO Q6H PRN PRN Reason: Dyspepsia Stop: 07/15/19 17:53 Last Admin: 06/16/19 00:03 Dose: 30 ml Documented by: Ciprofloxacin (Cipro) 500 mg PO BID [facility]; Protocol Stop: 06/19/19 09:01 Hydralazine HCl (Hydralazine Hcl) 10 mg IV Q6H PRN PRN Reason: Hypertension Stop: 07/15/19 19:29 Last Admin: 06/15/19 19:26 Dose: 10 mg Documented by: Hydromorphone HCl (Dilaudid) 1 mg IV Q3H PRN PRN Reason: Pain Stop: 06/29/19 21:06 Last Admin: 06/16/19 05:12 Dose: 1 mg Documented by: Sodium Chloride (Nss 1000ml) 1,000 mls @ 150 mls/hr IV .Q6H40M [facility] Stop: 07/15/19 16:44 Last Admin: 06/16/19 18:15 Dose: 150 mls/hr Documented by: Ketorolac Tromethamine (Toradol) 30 mg IV Q6H PRN PRN Reason: Pain Stop: 06/17/19 17:53 Last Admin: 06/16/19 18:14 Dose: 30 mg Documented by: Magnesium Hydroxide (Milk Of Magnesia) 30 ml PO Q6H PRN PRN Reason: Constipation Stop: 07/15/19 17:53 Ondansetron HCl (Zofran) 4 mg IV Q6H PRN PRN Reason: Nausea Stop: 07/15/19 17:53 Polyethylene Glycol (Miralax Powder Packet) 17 gm PO DAILY PRN PRN Reason: Constipation Stop: 07/15/19 17:53 (1) Leukocytosis Leukocytosis type: unspecified Qualified Code(s): D72.829 - Elevated white blood cell count, unspecified
[2019-06-16] MEDS: CIPROFLOXACIN 500 MG TAB PO SCH (21:06)
[2019-06-17] MEDS: ALUMINUM/MAGNESIUM SUSP 30 ML UDC PO PRN (00:19)
[2019-06-17] MEDS: ACETAMINOPHEN 500 MG TAB PO SCH ×2 (05:06→13:30)
[2019-06-17] MEDS: KETOROLAC 30 MG/ML VIAL IV PRN (06:24)
[2019-06-17 06:57] LABS: Basophils # (auto) 0.01 K/uL (0-0.2); Basophils % (auto) 0.1 %; Eosinophils # (auto) 0.01 K/uL (0-0.5); Eosinophils % (auto) 0.1 %; Hematocrit (blood only) 36.3 % (42-52); Hemoglobin 12.3 g/dL (14.0-18.0); Immature Granulocytes # (auto) 0.01 K/uL (0.00-0.02); Immature Granulocytes % (auto) 0.1 %; Lymphocytes # (auto) 1.81 K/uL (1.2-3.4); Lymphocytes % (auto) 17.8 %; Mean Corpuscular Hgb Conc 33.9 g/dL (32-36); Mean Corpuscular Volume 88.5 fL (80-100); Mean Platelet Volume 9.9 fL (7.4-10.4); Monocytes # (auto) 1.01 K/uL (0.11-0.59); Monocytes % (auto) 9.9 %; Neutrophils # (auto) 7.31 K/uL (1.4-6.5); Platelet Count 162 K/uL (130-400); RDW Coefficient of Variation 12.8 % (11.5-14.5); RDW Standard Deviation 41.1 fL (36.4-46.3); White Blood Count 10.16 K/uL (4.8-10.8)
[2019-06-17 07:40] LABS: BUN Creatinine Ratio 16.6 (10-20); Calcium 8.5 mg/dl (8.5-10.1); Creatinine Clr Calc Pharmacy 96.9 ml/min; Est GFR (African American) 113.5; Est GFR (Non-African American) 97.9; Potassium 3.6 mmol/L (3.5-5.1)
[2019-06-17] MEDS: CIPROFLOXACIN 500 MG TAB PO SCH (08:22)
--- NOTE | 2019-06-17 08:42 | Urology Progress Note ---
Date of Service June 17, 2019 Assessment & Plan (1) Calculus of distal right ureter: 49yo M POD #1 s/p cysto, Right URS/LL, stent placement for treatment of 5mm Right UVJ stone, moderate hydronephrosis. VSS, afebrile. Tolerating stent well. Discussed expected clinical course, plan for tethetered stent removal on Saturday. Appointment time added to discharge instructions. Okay to discharge home from perspective, with pain control, tamsulosin and cipro bid x3days. Thank you for allowing us to participate in the acute care of Mr. Boudreaux. Please reconsult us with additional questions, concerns or changes in patient status. Subjective 49yo M POD #1 s/p cysto, Right URS/LL, stent placement for treatment of 5mm Right UVJ stone, moderate hydronephrosis. Tolerated procedure well yesterday. Pt states pain is tolerable at this time. Denies urinary bother, LUTS, hematuria. Denies f/c/n/v. Tolerating diet well. He was not very conversive today, irritable and anxious for discharge therefore my HPI is somewhat limited today. Review of Systems Review of Systems: All systems reviewed & are unremarkable except as noted in HPI & below Physical Exam Constitutional: no acute distress and not ill appearing Eyes: no nystagmus ENMT: Ears: no hearing impairment Neck: trachea midline Respiratory: no respiratory distress and no cough Cardiovascular: Vessels: no JVD Chest (Breasts): Chest: normal inspection of chest Gastrointestinal (Abdomen): Inspection/Auscultation: abdomen not distended and no abdominal edema Percussion/Palpation: abdomen soft; abdomen nontender Musculoskeletal: Head/Neck/Chest: normocephalic and head atraumatic Skin: no rashes, warm and dry Neurologic: awake; not confused and not obtunded Psychiatric: Orientation: alert and oriented x 3 Eye Contact: good eye contact Affect: no depressed affect Genitourinary: no CVA tenderness tethered stent not observed but pt reports string still present. Lymphatic: no lymphadenopathy and no lymphedema Results & Data Vital Signs (Past 12 Hours) Vital Signs Temp Pulse Pulse Resp BP Pulse Ox 06/17/19 07:56 36.8 C 80 18 148/84 H 97 06/17/19 03:57 36.5 C 72 18 126/73 97 06/16/19 23:52 36.8 C 82 20 137/83 96 Laboratory Results Laboratory Results - last 48 hr 06/15/19 06/15/19 06/15/19 15:14 15:14 17:45 WBC 18.62 H RBC 5.07 Hgb 16.0 Hct 45.3 MCV 89.3 MCH 31.6 MCHC 35.3 RDW Std Deviation 43.7 RDW Coeff of Gayle 13.5 Plt Count 200 MPV 9.8 Immature Gran % (Auto) Neut % (Auto) Lymph % (Auto) Republic % (Auto) Eos % (Auto) Baso % (Auto) Immature Gran # (Auto) Neut # (Auto) Lymph # (Auto) Republic # (Auto) Eos # (Auto) Baso # (Auto) Sodium 139 Potassium 4.0 Chloride 102 Carbon Dioxide 27 Anion Gap 10.0 BUN 16 Creatinine 1.26 Est Cr Clr Drug Dosing 62.4 Est GFR ( Amer) 76.6 Est GFR (Non-Af Amer) 66.1 BUN/Creatinine Ratio 12.7 Glucose 126 H Estimat Average Glucose Hemoglobin A1c Calcium 8.9 Urine Color Yellow Urine Appearance Clear Urine pH 7.5 Ur Specific Sanger 1.017 Urine Protein Negative Urine Glucose (UA) 1+ H Urine Ketones 1+ H Urine Blood Negative Urine Nitrite Negative Urine Bilirubin Negative Urine Urobilinogen Negative Ur Leukocyte Esterase Negative 06/16/19 06/16/19 06/16/19 06:34 06:34 06:34 WBC 11.85 H RBC 4.22 L Hgb 12.9 L D Hct 37.9 L MCV 89.8 MCH 30.6 MCHC 34.0 RDW Std Deviation 43.6 RDW Coeff of Gayle 13.3 Plt Count 154 MPV 10.0 Immature Gran % (Auto) 0.1 Neut % (Auto) 71.0 Lymph % (Auto) 17.4 Republic % (Auto) 11.1 Eos % (Auto) 0.3 Baso % (Auto) 0.1 Immature Gran # (Auto) 0.01 Neut # (Auto) 8.41 H Lymph # (Auto) 2.06 Republic # (Auto) 1.32 H Eos # (Auto) 0.04 Baso # (Auto) 0.01 Sodium 140 Potassium 3.9 Chloride 106 Carbon Dioxide 30 Anion Gap 4.0 BUN 17 Creatinine 1.23 Est Cr Clr Drug Dosing 71.7 Est GFR ( Amer) 78.8 Est GFR (Non-Af Amer) 68.0 BUN/Creatinine Ratio 13.4 Glucose 92 Estimat Average Glucose 91 Hemoglobin A1c 4.8 Calcium 8.0 L Urine Color Urine Appearance Urine pH Ur Specific Sanger Urine Protein Urine Glucose (UA) Urine Ketones Urine Blood Urine Nitrite Urine Bilirubin Urine Urobilinogen Ur Leukocyte Esterase 06/17/19 06/17/19 06:30 06:30 WBC 10.16 RBC 4.10 L Hgb 12.3 L Hct 36.3 L MCV 88.5 MCH 30.0 MCHC 33.9 RDW Std Deviation 41.1 RDW Coeff of Gayle 12.8 Plt Count 162 MPV 9.9 Immature Gran % (Auto) 0.1 Neut % (Auto) 72.0 Lymph % (Auto) 17.8 Republic % (Auto) 9.9 Eos % (Auto) 0.1 Baso % (Auto) 0.1 Immature Gran # (Auto) 0.01 Neut # (Auto) 7.31 H Lymph # (Auto) 1.81 Republic # (Auto) 1.01 H Eos # (Auto) 0.01 Baso # (Auto) 0.01 Sodium 142 Potassium 3.6 Chloride 108 H Carbon Dioxide 26 Anion Gap 8.0 BUN 15 Creatinine 0.91 D Est Cr Clr Drug Dosing 96.9 Est GFR ( Amer) 113.5 Est GFR (Non-Af Amer) 97.9 BUN/Creatinine Ratio 16.6 Glucose 93 Estimat Average Glucose Hemoglobin A1c Calcium 8.5 Urine Color Urine Appearance Urine pH Ur Specific Sanger Urine Protein Urine Glucose (UA) Urine Ketones Urine Blood Urine Nitrite Urine Bilirubin Urine Urobilinogen Ur Leukocyte Esterase
--- NOTE | 2019-06-17 12:35 | Anesthesiology Progress Note ---
Date of Service June 17, 2019 Anesthesia Post Procedure Vital Signs Vital Signs: Temp Pulse Pulse Resp BP Pulse Ox 06/17/19 07:56 36.8 C 80 18 148/84 H 97 06/17/19 03:57 36.5 C 72 18 126/73 97 06/16/19 23:52 36.8 C 82 20 137/83 96 06/16/19 19:05 36.9 C 73 18 150/81 H 95 06/16/19 18:09 36.9 C 82 18 143/81 H 96 06/16/19 17:02 37.0 C 80 18 143/81 H 95 06/16/19 16:35 36.9 C 68 18 137/90 95 06/16/19 16:00 36.5 C 60 18 128/78 97 06/16/19 15:50 36.5 C 06/16/19 15:40 78 16 121/63 98 06/16/19 15:30 78 16 118/75 96 06/16/19 15:20 90 16 106/48 L 99 06/16/19 15:11 36.4 C L 74 16 101/52 L 98 06/16/19 13:12 36.8 C 78 20 148/84 H 98 Notes Mental Status: alert / awake / arousable and participated in evaluation Nausea / Vomiting: adequately controlled Pain: adequately controlled Airway Patency, RR, SpO2: stable & adequate BP & HR: stable & adequate Hydration State: stable & adequate
--- NOTE | 2019-06-17 12:45 | Hospitalist Progress Note ---
Date of Service June 17, 2019 Assessment & Plan (1) Calculus of distal right ureter: (2) Renal colic: Present on admission with right flank pain CT abd/pelvis on 06/14 showed 5 mm obstructing calculus in the distal right ureter located just above the vesicoureteral junction. This causes mild right hydroureteronephrosis. KUB on admission showed 3 mm right pelvic basin calcification, possibly corresponding to the recently described distal right ureteral calculus Status post Cystoscopy, Right Ureteroscopy, Laser Lithotripsy, Right Ureteral Stent Placement(Left) - Tucker Avalos MD on 06/16 No post-op complication Okay to discharge home from perspective, with pain control, tamsulosin and cipro bid x3days. Follow up with Urology (3) Leukocytosis: Likely due to the obstructed right ureteral stone Received IV Rocephin 1g q24hr due to elevated WBC 14k --> 18k---> 10K today Afebrile Flomax given in ED IV Rocephin changed to Cipro to complete 3 more days (4) Elevated glucose: Hba1c 4.8 Glucose stable (5) DVT prophylaxis: SCD/TEDS (due to recent procedure) Ambulates Disposition: Discharge home today Follow up with Urology Dr. Avalos (Please call our office at [phone] if you have any question) Follow up with PCP Dr. Dawson on 06/22/19 @ 12:45 PM Subjective Pt was seen and examined Lying in bed with no distress Pt is not happy because he wants to go home since this morning He said that he asked the nurse about the time that he would be discharge early this morning He said that the nurse did not come back to tell him about discharge time He said that he already filled a compliant about that He said that his urine is getting a little clearer Denies any flank, pain, palpitation, dizziness and SOB Physical Exam Physical Exam: General- No acute distress Head- atraumatic Eyes- PERRL, EOMI, ENT- oropharynx clear Neck- supple, no JVD Lungs- clear to auscultation Heart- regular rhythm; no murmur Abdomen- normal bowel sounds, soft, nontender Extremities- no calf tenderness Neuro- alert, oriented x 3; PERRL, EOMI; no facial palsy; no dysarthria Skin- warm & dry Results & Data Vital Signs (Past 12 Hours) Vital Signs Temp Pulse Pulse Resp BP Pulse Ox 06/17/19 07:56 36.8 C 80 18 148/84 H 97 06/17/19 03:57 36.5 C 72 18 126/73 97 (1) Leukocytosis Leukocytosis type: unspecified Qualified Code(s): D72.829 - Elevated white blood cell count, unspecified
--- NOTE | 2019-06-19 08:01 | Discharge Summary ---
Date of Service June 17, 2019 Admission HPI Per Admitting Provider This is a 49 yr old male with no significant PMH who presents to [facility] ED secondary to R flank pain x 2 days. Of significance pt was seen in ED yesterday due to similar sx. He was dx with a 5mm obstructing nephrolithiasis proximal to the R UVJ with mild hydronephrosis. He was discharged home with conservative management and oral analgesia in hopes to pass stone. Pt was taking norco and tylenol with out relief. Presented back to ED due to increase in pain starting at 10am. Pain located R Flank, described as sharp and stabbing, does not radiate to groin, not improved with OTC analgesia or norco. Currently rated 10/10. Also complains of nausea and emesis. Pt has had kidney stone in past ~ 20 years ago but denies ever having procedure. Sx feel similar but much more intense. Continues to have pain despite IV morphine and toradol given in ED. Denies f/c/s, dizziness, lightheaded, chest pain, sob, abdominal pain, diarrhea, dysuria, hematuria, increased urgency/freq with urination. Appetite overall diminished, last ate breakfast bowl of cereal. Admission Exam Per Admitting Provider Constitutional: Thin but WD, M, +distress, pt appears uncomfortable due to pain, vitals as above, sitting up in bed, Pt not cooperative with entire exam due to pain Head: Normocephalic, Atraumatic Eyes: PERRL, conjunctivae normal, anicteric sclerae ENMT: external ear and nose normal, oropharynx normal Neck: trachea midline, normal visual inspection Respiratory: normal respiratory effort, lungs clear to auscultation, no wheeze, rales, rhonchi anteriorly. Pt would not comply to listen posteriorly, but w/o respiratory complaint. Normal insp/exp effort, no accessory muscle use Cardiovascular: RRR, no murmur, no edema Vessels: no JVD or carotid bruit Chest: normal inspection of chest Abdomen: normal bowel sounds, soft, nontender, no hepatosplenomegaly Musculoskeletal: no cyanosis or clubbing, extremities motor strength 5/5 Skin: no rashes, warm and dry normal turgor Neurologic: PERRL, EOMI, accommodation nl, no face palsy, no dysarthria CN's II-XI intact bilaterally and moves all extremities Psychiatric: A+Ox3, euthymic affect : deferred Principal Diagnosis Calculus of distal right ureter Renal colic Elevated WBC Elevated Glucose Discharge Exam General- No acute distress Head- atraumatic Eyes- PERRL, EOMI, ENT- oropharynx clear Neck- supple, no JVD Lungs- clear to auscultation Heart- regular rhythm; no murmur Abdomen- normal bowel sounds, soft, nontender Extremities- no calf tenderness Neuro- alert, oriented x 3; PERRL, EOMI; no facial palsy; no dysarthria Skin- warm & dry Discharge Data Allergies Allergy/AdvReac Type Severity Reaction Status Date / Time latex Allergy Redness of Verified 06/15/19 16:30 Skin Consultations 06/15/19 16:10 ED Decision to Admit Stat 06/15/19 17:54 Consult Urology Routine Procedures Performed Operation Date: 06/16/19 13:00 Actual Procedures p Cystoscopy, Right Ureteroscopy, Laser Lithotripsy, Right Ureteral Stent Plac ement(Right) - Nilton Avalos MD Ordered Studies 06/16/19 13:00 FL KUB Routine FL KUB CLINICAL HISTORY: STENT PLACEMENT/STONE COMPARISON STUDY: CT 06/14/2019 FLUOROSCOPY TIME: 6 seconds NUMBER OF FLUOROSCOPIC IMAGES: 1 FINDINGS: Image intensifier was utilized for a right ureteral stent placement IMPRESSION: Image intensifier utilization for right ureteral stent placement The above report was generated using voice recognition software. It may contain grammatical, syntax or spelling errors. Electronically signed by: Cedric Zaman M.D. 06/16/2019 3:09 PM Dictated: 06/16/19 1508 Transcribed: 06/16/19 1508 XR chest 2V routine CLINICAL HISTORY: 49 years-old Male presenting with preop. TECHNIQUE: PA and lateral views of the chest were obtained. COMPARISON: None. FINDINGS: Cardiomediastinal silhouette normal. Lungs and pleural spaces clear. Osseous structures normal. Upper abdomen normal. IMPRESSION: 1. No acute cardiopulmonary disease. Electronically signed by: Weston Carrillo M.D. 06/16/2019 9:00 AM Dictated: 06/16/19 0900 Transcribed: 06/16/19 0900 XR KUB/Abdomen 1 view CLINICAL HISTORY: STONE, PAIN COMPARISON STUDY: Noncontrast CT scan dated 06/14/2019 FINDINGS: There is scattered stool within the colon. The renal shadows are largely obscured. No definite renal calculi are visualized. There are 2 pelvic basin calcifications. The superior calcification is somewhat irregular. This measures 3 mm and may correspond to the recently described distal right ureteral calculus. IMPRESSION: 1. No evidence of pathologic bowel dilatation 2. 3 mm right pelvic basin calcification, possibly corresponding to the recently described distal right ureteral calculus Electronically signed by: Jovan Hameed M.D. 06/15/2019 3:49 PM Dictated: 06/15/19 1545 Transcribed: 06/15/19 1545 Hospital Course (1) Calculus of distal right ureter: Appreciate urology input and recommendation Status post Cystoscopy, Right Ureteroscopy, Laser Lithotripsy, Right Ureteral Stent Placement(Left) - Nilton Avalos MD on 06/16 Feeling better following the procedure (2) Renal colic: Present on admission with right flank pain CT abd/pelvis on 06/14 showed 5 mm obstructing calculus in the distal right ureter located just above the vesicoureteral junction. This causes mild right hydroureteronephrosis. KUB on admission showed 3 mm right pelvic basin calcification, possibly corresponding to the recently described distal right ureteral calculus Status post Cystoscopy, Right Ureteroscopy, Laser Lithotripsy, Right Ureteral Stent Placement(Left) - Tucker Avalos MD on 06/16 No post-op complication Okay to discharge home from [facility], with pain control, tamsulosin and cipro bid x3days. Follow up with Urology (3) Leukocytosis: Likely due to the obstructed right ureteral stone Received IV Rocephin 1g q24hr due to elevated WBC 14k --> 18k---> 10K today Afebrile Flomax given in ED IV Rocephin changed to Cipro to complete 3 more days (4) Elevated glucose: Hba1c 4.8 Glucose stable (5) DVT prophylaxis: SCD/TEDS (due to recent procedure) Ambulates Disposition: Discharge home today Follow up with Urology Dr. Avalos (Please call our office at [phone] if you have any question) Follow up with PCP Dr. Dawson on 06/22/19 @ 12:45 PM Total Time Total Time Spent Total Time Spent (In Minutes): 35 minutes Total Time Includes: Examination of the Patient, Discharge Planning, Medication Reconciliation, Communication With Other Providers and Other Discharge Plan Discharge Items Patient Disposition: Home - Self-Care Reason For Visit: OBSTRUCTING KIDNEY STONE Discharge Diagnosis: Calculus of distal right ureter Renal colic Elevated WBC Elevated Glucose Activity: Resume your previous activity Activity Comment: As tolerated Non-emergency contact: Primary Care Provider and Urologist Call non-emergency contact if: you have any medication questions and your temperature is above 101 Follow-up/Referrals: Nilton Avalos MD [Physician] - (2 months with Renal US. We will call you to schedule. ) Denise Dawson DO [Primary Care Provider] - [facility],Nurse [Physician] - 06/19/19 11:40 am (stent removal) Diet: Regular Addtl Attending Provider Instructions: Follow up with your primary care provider Dr. Dawson on 06/22 @ 12:45 PM Follow up with [facility] urology group Dr. 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 Please call our office at [phone] with any questions, concerns or need to reschedule appointments for any reason. We are happy to assist you. While you have a ureteral stent in place: Some discomfort is normal. Certain movements may trigger pain or a feeling that you need to urinate. You may also feel mild soreness or pressure before or during urination. These symptoms should go away a few days after the stent is removed. Your urine may be slightly pink or red. This is due to bleeding caused by jessy r irritation from the stent. This may happen on and off while you have the stent, it is not harmful and is to be expected. Medication to help minimize discomfort or bladder spasms, or to prevent inf ection may be prescribed. Take this as directed. Drink plenty of fluids to help flush out your urinary tract. If you go home with a catheter, wash with soapy water and a fresh washcloth twice daily. We recommend mild bar soap such as Dial or Dove. How long will you need a stent? An appointment should already be made for you for stent removal, unless directed otherwise. The stent is often taken out after the blockage in the ureter is treated or the ureter has healed. This may take 1-2 weeks, or longer. If a stent is needed for a longer period of time, it may need to be exchanged every few months. Likely prior to your followup appointment you will be asked to get an X-ray, please complete this the night before or morning of your appointment. When to call [facility] Urology at [phone]: Your urine contains heavy blood clots You are constantly leaking urine Fever of 101F or higher, chills, nausea, or vomiting Your pain is not relieved with medication The end of the stent comes out of your urethra Pending Studies at Discharge: No Stand-Alone Forms: [facility] Medications and DC Order Prescriptions: New ciprofloxacin HCl 500 mg Tablet 500 mg PO BID 3 Days Qty: 6 RF: 0 Continued hydrocodone-acetaminophen [Mongo] 5-325 mg tablet 1 tab PO Q6H PRN (Reason: pain) Qty: 10 RF: 0 Discharge Orders: Discharge Order (Routine); Ordered 06/17/19 Ordered By: Naomi Quevedo/Other Patient Handouts: Ciprofloxacin Hydrochloride Oral tablet Admission Data Admit Date/Time: 06/15/19 16:29 Attending Provider: Naomi Bustillos Admit Provider: Wil Worley Primary Care Provider: Denise Dawson Other Providers: Wil Worley ; Mo Wilson Other Interventions: Discharge Summary Assessment (RN) Last Done: 06/17/19 13:20 DC Date/Time DO NOT enter until pt leaves facility: 06/17/19 13:55
== END 2019-06-17 13:55 | disposition home or self-care (01) | DRG 661 ==
LOC: ED 14:45 → SUATTDRO 16:29 → 3W 16:29
DX: N13.2 Hydronephrosis with renal and ureteral calculous obstruction; D72.829 Elevated white blood cell count, unspecified; R73.9 Hyperglycemia, unspecified; Z91.040 Latex allergy status